=== PATIENT | male | born 1990 | race Hispanic/Latino ===

== ENCOUNTER 2018-01-09 15:21 | Emergency (ER) | payer SELFPAY ==
[2018-01-09] MEDS ORDERED: ONDANSETRON 4 MG (ODT) TAB ONE (17:59)
[2018-01-09] MEDS ORDERED: MORPHINE 4 MG/ML SYR ONE (17:59)
--- NOTE | 2018-01-09 19:24 | ER ---
Nurse's Notes [facility] Name: Chris Diaz Age: 27 yrs Sex: Male : 1990 Arrival Date: 01/09/2018 Time: 15:24 Bed 16 Private MD: Jose Powers H Diagnosis: Internal derangement of knee Presentation: 01/09 15:31 Presenting complaint: Patient states: Reports feeling left knee "pop" while swimming aj yesterday. Reports pain when walking or bending knee. Transition of care: patient was not received from another setting of care. Onset of symptoms was January 08, 2018. Risk Assessment: Do you want to hurt yourself or someone else? Patient reports no desire to harm self or others. Initial Sepsis Screen: Does the patient meet any 2 criteria? No. Patient's initial sepsis screen is negative. Does the patient have a suspected source of infection? No. Patient's initial sepsis screen is negative. Care prior to arrival: None. 15:31 Method Of Arrival: Wheelchair aj 15:31 Acuity: EVE 4 aj Triage Assessment: 15:32 General: Appears in no apparent distress. comfortable, Behavior is calm, cooperative, aj appropriate for age. Pain: Complains of pain in left knee. Neuro: Level of Consciousness is awake, alert, obeys commands, Oriented to person, place, time, situation, Appropriate for age. Respiratory: Airway is patent Respiratory effort is even, unlabored, Respiratory pattern is regular, symmetrical. Derm: Skin is intact, is healthy with good turgor, Skin is pink, warm \\T\\ dry. normal. Musculoskeletal: Reports pain in left knee. 19:38 Injury Description: swelling. mb3 Historical: - Allergies: 15:32 No Known Allergies; aj - Home Meds: 15:32 Tylenol #3 Oral [Active]; aj - PMHx: 15:32 peptic ulcers; aj - PSHx: 15:32 Cholecystectomy; aj - Immunization history:: Adult Immunizations up to date. - Social history:: Smoking status: Patient uses tobacco products, smokes one-half pack cigarettes per day. - Ebola Screening: : Patient negative for fever greater than or equal to 101.5 degrees Fahrenheit, and additional compatible Ebola Virus Disease symptoms Patient denies exposure to infectious person Patient denies travel to an Ebola-affected area in the days before illness onset No symptoms or risks identified at this time. Screenin:21 Abuse screen: Denies threats or abuse. Nutritional screening: No deficits noted. mb3 Tuberculosis screening: No symptoms or risk factors identified. Fall Risk None identified. Assessment: 17:40 General: Appears uncomfortable, well groomed, Behavior is calm, cooperative, mb3 appropriate for age. 17:40 Pain: Complains of pain in left knee Pain does not radiate. Pain currently is 10 out of mb3 10 on a pain scale. Neuro: No deficits noted. Cardiovascular: No deficits noted. Respiratory: No deficits noted. GI: No deficits noted. No signs and/or symptoms were reported involving the gastrointestinal system. : No deficits noted. No signs and/or symptoms were reported regarding the genitourinary system. Derm: No deficits noted. No signs and/or symptoms reported regarding the dermatologic system. Musculoskeletal: Capillary refill < 3 seconds, Swelling present in left knee Reports pain in left knee. Vital Signs: 15:32 BP 143 / 93; Pulse 64; Resp 20; Temp 98.1; Pulse Ox 99% on R/A; Weight 109.77 kg (M); aj Height 5 ft. 10 in. (177.80 cm); 19:25 BP 152 / 94; Pulse 56; Resp 14; Pulse Ox 97% on R/A; mb3 15:32 Body Mass Index 34.72 (109.77 kg, 177.80 cm) aj ED Course: 15:24 Patient arrived in ED. sb2 15:24 Jose Powers DO is Private Physician. sb2 15:32 Triage completed. aj 15:32 Arm band placed on left wrist. Patient placed in waiting room, in a wheelchair, Patient aj notified of wait time. X-ray ordered. 17:30 Rufino Collazo PA is PHCP. [facility] 17:30 Lizandro Carroll MD is Attending Physician. m 17:53 Celso Swanson, TYSON is Primary Nurse. mb3 18:56 XRAY Knee LEFT 3 view In Process Unspecified. EDMS 19:04 called and connected with Rufino PETERS for patient consulation. eb 19:10 Crutch training done. Knee immobilizer applied on left knee. [facility] 19:24 Jaskaran Ruiz MD is Referral Physician. [facility] 19:26 No provider procedures requiring assistance completed. Patient did not have IV access mb3 during this emergency room visit. 19:39 Patient has correct armband on for positive identification. mb3 Administered Medications: 18:00 Drug: morphine 4 mg Route: IM; Site: left deltoid; mb3 19:37 Follow up: Response: No adverse reaction mb3 18:00 Drug: Zofran 4 mg Route: PO; mb3 19:37 Follow up: Response: No adverse reaction mb3 Outcome: 19:24 Discharge ordered by . jmm 19:38 Discharged to home via wheelchair, with crutches, with family. mb3 19:38 Condition: stable 19:38 Discharge instructions given to patient, family, Instructed on discharge instructions, follow up and referral plans. medication usage, crutch walking, Demonstrated understanding of instructions, follow-up care, medications, crutch walking, Prescriptions given X 2. 19:40 Patient left the ED. mb3 Signatures: Dispatcher [employer] EDMS Ngoc Reynolds, RN RN Rufino Segura PA PA jmm Martinez, Maria 5 Gisela Mendoza 2 Melissa Bañuelos Mark, RN RN mb3
--- NOTE | 2018-01-09 19:25 | EDPHYS ---
Physician Documentation [facility] Name: Chris Diaz Age: 27 yrs Sex: Male : 1990 Arrival Date: 01/09/2018 Time: 15:24 Bed 16 Private MD: Jose Powers H ED Physician Lizandro Carroll HPI: 01/09 19:08 This 27 yrs old Male presents to ER via Wheelchair with complaints of Knee jmm Injury. 19:08 The patient presents with an injury, pain, that is acute. The complaints affect the jmm left knee. Onset: The symptoms/episode began/occurred acutely. Modifying factors: The symptoms are alleviated by elevating leg, the symptoms are aggravated by weight bearing, bending knee. Patient complains of left knee pain beginning after playing with his son in the pool. Patient states his knee cap displaced and reduced immediately afterwards. Patient complains of similar symptoms over the past 7 months with worse pain beginning today. . Historical: - Allergies: 15:32 No Known Allergies; aj - Home Meds: 15:32 Tylenol #3 Oral [Active]; aj - PMHx: 15:32 peptic ulcers; aj - PSHx: 15:32 Cholecystectomy; aj - Immunization history:: Adult Immunizations up to date. - Social history:: Smoking status: Patient uses tobacco products, smokes one-half pack cigarettes per day. - Ebola Screening: : Patient negative for fever greater than or equal to 101.5 degrees Fahrenheit, and additional compatible Ebola Virus Disease symptoms Patient denies exposure to infectious person Patient denies travel to an Ebola-affected area in the 21 days before illness onset No symptoms or risks identified at this time. ROS: 19:08 Constitutional: Negative for fever, chills, and weight loss, Cardiovascular: Negative jmm for chest pain, palpitations, and edema, Respiratory: Negative for shortness of breath, cough, wheezing, and pleuritic chest pain, Abdomen/GI: Negative for abdominal pain, nausea, vomiting, diarrhea, and constipation, Back: Negative for injury and pain, : Negative for injury, bleeding, discharge, and swelling. 19:08 Neuro: Negative for headache, weakness, numbness, tingling, and seizure, Psych: Negative for depression, anxiety, suicide ideation, homicidal ideation, and hallucinations. 19:08 MS/extremity: Positive for pain. 19:08 All other systems are negative. Exam: 19:08 Cardiovascular: Regular rate and rhythm. No gallops, murmurs, or rubs. Full/Equal [facility] distal pulses. Respiratory: Lungs have equal breath sounds bilaterally, clear to auscultation. No rales, rhonchi or wheezes noted. No increased work of breathing, no retractions or nasal flaring. 19:08 Constitutional: The patient appears alert, awake, uncomfortable. 19:08 Musculoskeletal/extremity: pain on flexion to the left knee, mild swelling appreciated, full dorsalis pulse, NVI. 19:08 Skin: Appearance: Color: normal in color. 19:08 Neuro: Orientation: is normal, Mentation: is normal, Memory: is normal. Vital Signs: 15:32 BP 143 / 93; Pulse 64; Resp 20; Temp 98.1; Pulse Ox 99% on R/A; Weight 109.77 kg (M); aj Height 5 ft. 10 in. (177.80 cm); 19:25 BP 152 / 94; Pulse 56; Resp 14; Pulse Ox 97% on R/A; mb3 15:32 Body Mass Index 34.72 (109.77 kg, 177.80 cm) Procedures: 19:08 Splinting: Splint applied to left leg using knee immobilizer, applied by tech. Examined jm by me, post splint application: neurovascular intact, 2+ distal pulses palpable, brisk capillary refill noted, Patient tolerated well. MDM: 17:44 Patient medically screened. [facility] 19:08 Data reviewed: vital signs, nurses notes. Physician consultation: Jaskaran Ruiz MD. [facility] 19:23 Counseling: I had a detailed discussion with the patient and/or guardian regarding: the [facility] historical points, exam findings, and any diagnostic results supporting the discharge/admit diagnosis, the presence of at least one elevated blood pressure reading (>120/80) during this emergency department visit, radiology results, the need for outpatient follow up, to return to the emergency department if symptoms worsen or persist or if there are any questions or concerns that arise at home. Response to treatment: the patient's symptoms have mildly improved after treatment. 01/09 15:34 Order name: XRAY Knee LEFT 3 view; Complete Time: 19:37 06/16 19:12 Order name: Knee Immobilizer; Complete Time: 19:13 5 01/09 19:12 Order name: Crutches; Complete Time: 19:13 5 Administered Medications: 18:00 Drug: morphine 4 mg Route: IM; Site: left deltoid; mb3 19:37 Follow up: Response: No adverse reaction 3 18:00 Drug: Zofran 4 mg Route: PO; mb3 19:37 Follow up: Response: No adverse reaction 3 Disposition: 01/10 07:58 Co-signature as Attending Physician, Lizandro Carroll MD. Disposition: 01/09/18 19:24 Discharged to Home. Impression: Internal derangement of knee. - Condition is Stable. - Discharge Instructions: Knee Pain. - Prescriptions for Ibuprofen 800 mg Oral Tablet - take 1 tablet by ORAL route every 8 hours As needed take with food; 30 tablet. Ultracet 37.5- 325 mg Oral Tablet - take 2 tablet by ORAL route every 6 hours - for up to 5 days; do not exceed 8 tablets per day.; 20 tablet. - Work release form, Medication Reconciliation Form, Thank You Letter, Antibiotic Education, Prescription Opioid Use form. - Follow up: Jaskaran Ruiz MD; When: 1 - 2 days; Reason: Continuance of care. Signatures: Dispatcher [employer] EDNgoc Ruano, RN RN Rufino Segura PA PA jmm Martinez, Maria [facility] Lizandro Carroll MD MD Celso Swanson RN RN mb3 Corrections: (The following items were deleted from the chart) 01/09 19:40 19:24 01/09/2018 19:24 Discharged to Home. Impression: Internal derangement of knee. mb3 Condition is Stable. Forms are Medication Reconciliation Form, Thank You Letter, Antibiotic Education, Prescription Opioid Use. Follow up: Dr. Jaskaran Ruiz; When: 1 - 2 days; Reason: Continuance of care. stacy
--- NOTE | 2018-01-09 19:29 | RAD REPORT ---
EXAM DESCRIPTION: RAD - Knee Left 3 View - 01/09/2018 6:56 pm CLINICAL HISTORY: Left knee pain status post injury FINDINGS: No fracture or dislocation is seen.
[2018-01-09 19:48] VITALS: TEMP 98.1
[2018-01-09 19:49] VITALS: BP 152/94; O2SAT 97
== END 2018-01-09 19:40 | disposition home or self-care (01) ==
LOC: ER 15:21
DX: M23.92 Unspecified internal derangement of left knee (principal); F17.210 Nicotine dependence, cigarettes, uncomplicated
CPT/HCPCS: 96372; 99284

== ENCOUNTER 2018-08-25 09:22 | Emergency (ER) | payer OTHER, SELFPAY ==
--- NOTE | 2018-08-25 10:37 | ER ---
Nurse's Notes [facility] Name: Chris iDaz Age: 28 yrs Sex: Male : 1990 Arrival Date: 08/25/2018 Time: 09:25 Bed 10 Private MD: Jose Powers H Diagnosis: Acute upper respiratory infection, unspecified Presentation: 08/25 09:49 Presenting complaint: Patient states: bodyaches, generalized weakness, chills x 2 days. sv Transition of care: patient was not received from another setting of care. Onset of symptoms was August 23, 2018. Care prior to arrival: Medication(s) given: Nyquil and Zantac. 09:49 Method Of Arrival: Ambulatory sv 09:49 Acuity: EVE 4 sv 11:26 Risk Assessment: Do you want to hurt yourself or someone else? Patient reports ss desire/thoughts of hurting themselves or someone else. Provider notified. Initial Sepsis Screen: Does the patient meet any 2 criteria? No. Patient's initial sepsis screen is negative. Does the patient have a suspected source of infection? No. Patient's initial sepsis screen is negative. Historical: - Allergies: 09:50 No Known Allergies; sv - PMHx: 09:50 peptic ulcers; sv - PSHx: 09:50 Cholecystectomy; sv - Immunization history:: Flu vaccine is not up to date. - Social history:: Smoking status: Patient uses tobacco products, smokes one-half pack cigarettes per day. - Ebola Screening: : No symptoms or risks identified at this time. Screenin:22 Abuse screen: Denies threats or abuse. Denies injuries from another. Nutritional ss screening: No deficits noted. Tuberculosis screening: No symptoms or risk factors identified. Never had TB. Fall Risk None identified. Assessment: 10:00 General: Appears in no apparent distress. Behavior is calm, cooperative, appropriate ss for age. Pain: Complains of pain in nose. Neuro: Level of Consciousness is awake, alert, obeys commands, Oriented to person, place, time, situation. Cardiovascular: Capillary refill < 3 seconds Patient's skin is warm and dry. Respiratory: Reports cough that is Airway is patent Respiratory effort is even, unlabored, Respiratory pattern is regular, symmetrical. GI: No signs and/or symptoms were reported involving the gastrointestinal system. : No signs and/or symptoms were reported regarding the genitourinary system. EENT: Reports nasal congestion nasal discharge. Musculoskeletal: No signs and/or symptoms reported regarding the musculoskeletal system. 11:26 Reassessment: No changes from previously documented assessment. Patient and/or family ss updated on plan of care and expected duration. Pain level reassessed. Patient is alert, oriented x 3, equal unlabored respirations, skin warm/dry/pink. Vital Signs: 09:50 BP 147 / 99; Pulse 74; Resp 18; Temp 97.6; Pulse Ox 97% ; Weight 119.75 kg; Height 5 sv ft. 10 in. (177.80 cm); 09:50 Body Mass Index 37.88 (119.75 kg, 177.80 cm) sv ED Course: 09:25 Patient arrived in ED. sb2 09:25 Jose Powers DO is Private Physician. sb2 09:50 Triage completed. sv 09:52 Arm band placed on. sv 09:55 José Miguel Rdz PA is PHCP. cp 09:55 Harpreet Garcia MD is Attending Physician. cp 09:55 Bed in low position. Call light in reach. Adult w/ patient. ss 11:22 No provider procedures requiring assistance completed. Patient did not have IV access ss during this emergency room visit. 11:25 Kerri Ghotra, TYSON is Primary Nurse. ss Administered Medications: No medications were administered Outcome: 10:36 Discharge ordered by MD. cp 11:22 Discharged to home ambulatory. ss 11:22 Condition: good 11:22 Discharge instructions given to patient, Instructed on discharge instructions, follow up and referral plans. medication usage, Demonstrated understanding of instructions, follow-up care, medications, Prescriptions given X 2. 11:27 Patient left the ED. ss Signatures: Joycelyn Cornell RN RN Kerri Ghotra RN RN ss José Miguel Rdz PA PA cp Billeau, Sheri sb2 Corrections: (The following items were deleted from the chart) 09:52 09:50 Pulse 74bpm; Resp 18bpm; Pulse Ox 97%; Temp 97.6F; 119.75 kg; Height 5 ft. 10 sv in.; BMI: 37.8; sv
--- NOTE | 2018-08-25 10:38 | EDPHYS ---
Physician Documentation [facility] Name: Chris Diaz Age: 28 yrs Sex: Male : 1990 Arrival Date: 08/25/2018 Time: 09:25 Bed 10 Private MD: Jose Powers H ED Physician Harpreet Garcia HPI: 08/25 10:00 This 28 yrs old Male presents to ER via Ambulatory with complaints of Flu cp Symptoms. 10:00 The patient or guardian reports cough, that is intermittent. Onset: The cp symptoms/episode began/occurred 2 day(s) ago. 10:00 Associated signs and symptoms: Pertinent positives: fever, sore throat, body aches. cp Severity of symptoms: in the emergency department the symptoms are unchanged despite home interventions. Historical: - Allergies: 09:50 No Known Allergies; sv - PMHx: 09:50 peptic ulcers; sv - PSHx: 09:50 Cholecystectomy; sv - Immunization history:: Flu vaccine is not up to date. - Social history:: Smoking status: Patient uses tobacco products, smokes one-half pack cigarettes per day. - Ebola Screening: : No symptoms or risks identified at this time. ROS: 10:05 Constitutional: Positive for body aches, Negative for chills, fever, poor PO intake. cp 10:05 Eyes: Negative for injury, pain, redness, and discharge. cp 10:05 ENT: Positive for rhinorrhea, sore throat, Negative for drainage from ear(s), ear pain, difficulty swallowing, difficulty handling secretions. 10:05 Respiratory: Positive for cough, Negative for shortness of breath, wheezing. 10:05 Abdomen/GI: Negative for abdominal pain, nausea, vomiting, and diarrhea. 10:05 Skin: Negative for cellulitis, rash. cp 10:05 All other systems are negative. cp Exam: 10:10 Constitutional: The patient appears in no acute distress, alert, awake, non-toxic, well cp developed, well nourished. 10:10 Head/Face: Normocephalic, atraumatic. cp 10:10 Eyes: Periorbital structures: appear normal, Conjunctiva: normal, no exudate, no cp injection, Sclera: no appreciated abnormality, Lids and lashes: appear normal, bilaterally. 10:10 ENT: External ear(s): are unremarkable, Ear canal(s): are normal, clear, TM's: bulging, is not appreciated, bilaterally, dullness, bilaterally, erythema, is not appreciated, bilaterally, Nose: is normal, Mouth: Lips: moist, Oral mucosa: pink and intact, moist, Posterior pharynx: Airway: no evidence of obstruction, patent, Tonsils: are normal in appearance, swelling, is not appreciated, erythema, that is mild, exudate, is not appreciated, Voice: is normal. 10:10 Neck: ROM/movement: is normal, is supple, without pain, no range of motions limitations, no meningismus, no nuchal rigidity, Lymph nodes: no appreciated lymphadenopathy. 10:10 Chest/axilla: Inspection: normal, Palpation: is normal, no crepitus, no tenderness. 10:10 Cardiovascular: Rate: normal, Rhythm: regular. 10:10 Respiratory: the patient does not display signs of respiratory distress, Respirations: normal, no use of accessory muscles, no retractions, no splinting, no tachypnea, labored breathing, is not present, Breath sounds: are clear throughout, no decreased breath sounds, no stridor, no wheezing. 10:10 Abdomen/GI: Inspection: abdomen appears normal, Bowel sounds: active, all quadrants, cp Palpation: abdomen is soft and non-tender, in all quadrants. 10:10 Skin: cellulitis, is not appreciated, no rash present. Vital Signs: 09:50 BP 147 / 99; Pulse 74; Resp 18; Temp 97.6; Pulse Ox 97% ; Weight 119.75 kg; Height 5 sv ft. 10 in. (177.80 cm); 09:50 Body Mass Index 37.88 (119.75 kg, 177.80 cm) sv MDM: 09:55 Patient medically screened. cp 10:00 Differential diagnosis: bronchitis, flu, URI, strep throat. cp 10:36 Data reviewed: vital signs, nurses notes, lab test result(s), and as a result, I will cp discharge patient. 10:36 Counseling: I had a detailed discussion with the patient and/or guardian regarding: the cp historical points, exam findings, and any diagnostic results supporting the discharge/admit diagnosis, lab results, to return to the emergency department if symptoms worsen or persist or if there are any questions or concerns that arise at home. 08/25 09:52 Order name: Flu; Complete Time: 10:35 sv 08/25 10:35 Interpretation: Reviewed. cp 08/25 09:59 Order name: Strep; Complete Time: 10:35 cp 08/25 10:35 Interpretation: Reviewed. cp 08/25 10:36 Order name: Throat Culture EDMS Administered Medications: No medications were administered Disposition: 18:42 Co-signature as Attending Physician, Harpreet Garcia MD. ma2 Disposition: 08/25/18 10:36 Discharged to Home. Impression: Acute upper respiratory infection, unspecified. - Condition is Stable. - Discharge Instructions: Upper Respiratory Infection, Adult, Viral Respiratory Infection, [id number], Form - Excuse from Work, School, or Physical Activity. - Prescriptions for Ibuprofen 800 mg Oral Tablet - take 1 tablet by ORAL route every 8 hours As needed take with food; 30 tablet. Tessalon Perles 100 mg Oral Capsule - take 2 capsule by ORAL route every 8 hours As needed; 30 capsule. - Work release form, Medication Reconciliation Form, Thank You Letter, Antibiotic Education, Prescription Opioid Use form. - Follow up: Private Physician; When: 2 - 3 days; Reason: symptoms continue. - Problem is new. - Symptoms have improved. Signatures: Dispatcher [employer] Joycelyn Harvey RN RN sv Smirch, Shelby, RN RN ss Page, Corey, FRAN PA Harprete Owusu MD MD ma2 Corrections: (The following items were deleted from the chart) 11:27 10:36 08/25/2018 10:36 Discharged to Home. Impression: Acute upper respiratory ss infection, unspecified. Condition is Stable. Forms are Medication Reconciliation Form, Thank You Letter, Antibiotic Education, Prescription Opioid Use. Follow up: Private Physician; When: 2 - 3 days; Reason: symptoms continue. Problem is new. Symptoms have improved. cp
[2018-08-25 11:35] VITALS: BP 147/99; TEMP 97.6; O2SAT 97
== END 2018-08-25 11:27 | disposition home or self-care (01) ==
LOC: ER 09:22
DX: J06.9 Acute upper respiratory infection, unspecified (principal); F17.210 Nicotine dependence, cigarettes, uncomplicated
CPT/HCPCS: 87070; 87081; 87804; 99282